=== PATIENT | male | born 2000 | race Caucasian/White ===

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

== ENCOUNTER 2019-03-20 23:58 | Emergency (ER) | payer OTHER ==
[~2019-03-20] VITALS: Ht 180.3 cm; Wt 77.0 kg
[2019-03-21 00:05] VITALS: BP 129/69
[2019-03-21] MEDS ORDERED: morphine 4 MG/ML inj SYRINge IM ONE ×2 (00:15→00:55)
[2019-03-21] MEDS ORDERED: DICL50TA8 PO (00:35)
[2019-03-21] MEDS ORDERED: morphine 4 MG/ML inj SYRINge IV ONE (00:45)
== END 2019-03-21 01:04 | disposition home or self-care (01) ==
LOC: ER 23:58
DX: S89.91XA Unspecified injury of right lower leg, initial encounter (principal); F32.9 Major depressive disorder, single episode, unspecified; Z79.899 Other long term (current) drug therapy; W22.8XXA Striking against or struck by other objects, initial encounter; Y93.89 Activity, other specified; Y92.89 Other specified places as the place of occurrence of the external cause; Y99.0 Civilian activity done for income or pay
CPT/HCPCS: 29505; 73564; 96372; 99283; J2270

== ENCOUNTER 2019-05-20 20:04 | Emergency (ER) | payer OTHER ==
[~2019-05-20] VITALS: Ht 180.3 cm; Wt 80.0 kg
[~2019-05-20 20:04] MED LIST changes: +DICL50TA8 PO
[2019-05-20] MEDS ORDERED: azithromycin 250mg tablet PO ONE ×3 (20:50→20:55)
[2019-05-20] MEDS ORDERED: CefTRIAXone 1000mg IM Kit (w/lidocaine diluent) IM ONE (20:50)
[2019-05-20] MEDS ORDERED: DIPH25CA83 PO (21:14)
[2019-05-20 21:32] VITALS: BP 120/72
== END 2019-05-20 21:32 | disposition home or self-care (01) ==
LOC: ER 20:07
DX: L25.9 Unspecified contact dermatitis, unspecified cause (principal); F32.9 Major depressive disorder, single episode, unspecified; Z79.899 Other long term (current) drug therapy; Z72.89 Other problems related to lifestyle
CPT/HCPCS: 36415; 87491; 87591; 96372; 99283; J0696

== ENCOUNTER 2019-11-01 20:24 | Emergency (ER) | payer MEDICAID ==
[~2019-11-01] VITALS: Ht 180.3 cm; Wt 70.3 kg
[~2019-11-01 20:24] MED LIST changes: +DIPH25CA83 PO
[2019-11-01] MEDS ORDERED: ketorolac tromethamine 15mg/ml inj. IM ONE (22:00)
[2019-11-01] MEDS ORDERED: HYDROcodone/acetaminophen 5mg/325mg tablet PO ONE (23:30)
[2019-11-01 23:51] VITALS: BP 116/85
== END 2019-11-01 23:52 | disposition home or self-care (01) ==
LOC: ER 20:24
DX: R68.84 Jaw pain (principal); Z79.899 Other long term (current) drug therapy; W19.XXXA Unspecified fall, initial encounter; Y93.89 Activity, other specified; Y92.89 Other specified places as the place of occurrence of the external cause; Y99.9 Unspecified external cause status
CPT/HCPCS: 70486; 96372; 99284; J1885

== ENCOUNTER 2020-01-11 05:41 | Emergency (ER) | payer MEDICAID ==
[~2020-01-11] VITALS: Ht 180.3 cm; Wt 81.8 kg
[2020-01-11 05:44] VITALS: BP 141/93
--- NOTE | 2020-01-11 06:04 | NUR ---
PT PLACED IN ROOM AND CONTINUES TO SOB. REQUESTS SOMETHING FOR HIS ANXIETY, HIS PAINI TO HIS THROAT, AND A NICOTINE PATCH. AWAITING ER PROVIDER.
[2020-01-11] MEDS ORDERED: nicotine 21mg patch - 24 hr TD ONE ×2 (07:04→07:20)
[2020-01-11] MEDS ORDERED: nicotine 7mg patch - 24hr TD ONE (07:14)
[2020-01-11] MEDS ORDERED: clonazePAM 0.5mg tablet ONE (07:15)
[2020-01-11 07:37] LABS: ALANINE AMINOTRANSFERASE 38 U/L (12-78); ALBUMIN 5.1 G/DL (3.4-5.0); ALBUMIN/GLOBULIN RATIO 1.7 (1.1-1.5); ALKALINE PHOSPHATASE 125 IU/L (20-180); ANION GAP 11 (8-16); ASPARTATE AMINO TRANSFERASE 34 U/L (10-37); BILIRUBIN,TOTAL 0.4 MG/DL (0.1-1.0); BLOOD UREA NITROGEN 17 MG/DL (7-18); BUN/CREATININE RATIO 14.8 (5.4-32.0); CALCIUM 8.6 MG/DL (8.5-10.1); CHLORIDE 102 MMOL/L (99-107); CREATININE 1.15 MG/DL (0.60-1.10); ETHANOL 0.126 GM/DL (0.0-0.010); GLUCOSE 63 MG/DL (70-104); POTASSIUM 3.9 MMOL/L (3.5-5.1); SODIUM 141 MMOL/L (135-145); TOTAL CARBON DIOXIDE 28.1 MMOL/L (24-32); TOTAL PROTEIN 8.1 G/DL (6.4-8.2); eGFR 81 ML/MIN
[2020-01-11 07:50] LABS: URINE AMPHETAMINE SCREEN NEGATIVE (Neg); URINE BARBITUATE SCREEN NEGATIVE (Neg); URINE BENZODIAZEPINES SCREEN NEGATIVE (Neg); URINE CANNABINOID SCREEN POSITIVE (Neg); URINE COCAINE SCREEN NEGATIVE (Neg); URINE METHADONE SCREEN NEGATIVE (Neg); URINE OPIATE SCREEN NEGATIVE (Neg); URINE PHENCYCLIDINE SCREEN NEGATIVE (Neg)
[2020-01-11 07:52] LABS: CLARITY,URINE CLEAR (Clear); COLOR,URINE STRAW (Yellow); UA COLLECTION TYPE VOIDED
[2020-01-11 07:53] LABS: GLUCOSE, URINE NEGATIVE (Neg); KETONES,URINE NEGATIVE (Neg); LEUKOCYTE ESTERASE ,URINE NEGATIVE (Neg); NITRITES, URINE NEGATIVE (Neg); OCCULT BLOOD,URINE TRACE-LYSED (Neg); PROTEIN,URINE NEGATIVE (Neg); UROBILINOGEN,URINE 0.2 E.U/dL (0.2-1.0)
[2020-01-11 07:54] LABS: BACTERIA,URINE FEW /HPF (Neg); RBC,URINE 0-2 /HPF (0-2); SQUAMOUS EPITHELIAL CELL,UR FEW /LPF (FEW)
[2020-01-11 08:27] LABS: BASOPHILS % (AUTO) 0.4 % (0-1); EOSINOPHILS # (AUTO) 0.1 X10'3 (0-0.9); EOSINOPHILS % (AUTO) 1.3 % (0-6); HEMATOCRIT 50.7 % (42.0-52.0); HEMOGLOBIN 17.4 g/dl (14.0-17.9); LYMPHOCYTES # (AUTO) 2.7 X10'3 (1.1-4.8); MEAN CORPUSCULAR HEMOGLOBIN 30.3 PG (27.0-31.0); MEAN CORPUSCULAR HGB CONC 34.2 g/dL (33.0-36.5); MEAN CORPUSCULAR VOLUME 88.6 FL (78-98); MEAN PLATELET VOLUME 8.2 FL (7.4-10.4); MONOCYTES # (AUTO) 1.2 X10'3 (0-0.9); MONOCYTES % (AUTO) 11.9 % (2-12); NEUTROPHILS # (AUTO) 6.3 X10'3 (1.8-7.7); NEUTROPHILS % (AUTO) 60.4 % (42-75); PLATELET COUNT 251 X10'3 (140-440); RED BLOOD COUNT 5.73 X10'6 (4.70-6.10); RED CELL DISTRIBUTION WIDTH 13.2 % (11.5-14.5); WHITE BLOOD COUNT 10.4 X10'3 (4.5-11.0)
== END 2020-01-11 09:36 | disposition home or self-care (01) ==
LOC: ER 05:42
DX: F43.22 Adjustment disorder with anxiety (principal); F32.9 Major depressive disorder, single episode, unspecified; F17.200 Nicotine dependence, unspecified, uncomplicated; Z72.89 Other problems related to lifestyle; Z79.899 Other long term (current) drug therapy
CPT/HCPCS: 36415; 80053; 80305; 80320; 81001; 84443; 85025; 99283

== ENCOUNTER 2020-01-21 23:26 | Emergency (ER) | payer MEDICAID ==
[~2020-01-21] VITALS: Ht 177.8 cm; Wt 75.0 kg
[2020-01-21 23:29] VITALS: BP 125/98
[2020-01-21] MEDS ORDERED: HYDROcodone/acetaminophen 10/325mg tab PO ONE (23:35)
== END 2020-01-22 00:34 | disposition home or self-care (01) ==
LOC: ER 23:27
DX: K08.89 Other specified disorders of teeth and supporting structures (principal); K03.81 Cracked tooth; F32.9 Major depressive disorder, single episode, unspecified; Z79.899 Other long term (current) drug therapy
CPT/HCPCS: 99282

== ENCOUNTER 2020-01-22 23:44 | Emergency (ER) | payer MEDICAID ==
[~2020-01-22] VITALS: Ht 180.3 cm; Wt 78.6 kg
[2020-01-22] MEDS ORDERED: LIDOcaine 1% W/epiNEPHrine 1:200,000 10ml vial IJ ONE (23:50)
[2020-01-22] MEDS ORDERED: TETanus/Pertussis (Acell)/Diphther VAC/PF (Tdap-Adult) 0.5ml syringe IMVAC ONE (23:50)
[2020-01-23] MEDS ORDERED: LORazepam 1 MG tablet PO ONE (00:25)
[2020-01-23] MEDS ORDERED: diphenhydrAMINE 25mg capsule PO ONE (00:25)
--- NOTE | 2020-01-23 00:32 | NUR ---
ASSUMED CARE OF PT FROM MOODY RUCKER
[2020-01-23] MEDS ORDERED: diphenhydrAMINE 50 mg/ml inj IM ONE ×2 (00:55→02:15)
[2020-01-23] MEDS ORDERED: LORazepam 2 mg/ml vial IM ONE ×2 (00:55→02:15)
--- NOTE | 2020-01-23 00:59 | NUR ---
PT IS VERY EMOTIONAL, CRYING AND THROWING UP. 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
[2020-01-23 01:53] LABS: BASOPHILS % (AUTO) 0.5 % (0-1); EOSINOPHILS # (AUTO) 0.3 X10'3 (0-0.9); EOSINOPHILS % (AUTO) 3.5 % (0-6); HEMATOCRIT 45.9 % (42.0-52.0); HEMOGLOBIN 15.7 g/dl (14.0-17.9); LYMPHOCYTES # (AUTO) 2.7 X10'3 (1.1-4.8); MEAN CORPUSCULAR HEMOGLOBIN 30.8 PG (27.0-31.0); MEAN CORPUSCULAR HGB CONC 34.3 g/dL (33.0-36.5); MEAN CORPUSCULAR VOLUME 89.9 FL (78-98); MEAN PLATELET VOLUME 7.8 FL (7.4-10.4); MONOCYTES # (AUTO) 0.6 X10'3 (0-0.9); MONOCYTES % (AUTO) 8.7 % (2-12); NEUTROPHILS # (AUTO) 3.6 X10'3 (1.8-7.7); NEUTROPHILS % (AUTO) 50.3 % (42-75); PLATELET COUNT 252 X10'3 (140-440); RED CELL DISTRIBUTION WIDTH 12.8 % (11.5-14.5); WHITE BLOOD COUNT 7.2 X10'3 (4.5-11.0)
[2020-01-23] MEDS ORDERED: nicotine 14mg patch - 24hr TD ONE (01:55)
[2020-01-23 01:57] LABS: URINE AMPHETAMINE SCREEN NEGATIVE (Neg); URINE BARBITUATE SCREEN NEGATIVE (Neg); URINE BENZODIAZEPINES SCREEN POSITIVE (Neg); URINE CANNABINOID SCREEN POSITIVE (Neg); URINE COCAINE SCREEN NEGATIVE (Neg); URINE METHADONE SCREEN NEGATIVE (Neg); URINE OPIATE SCREEN POSITIVE (Neg); URINE PHENCYCLIDINE SCREEN NEGATIVE (Neg)
[2020-01-23 01:58] LABS: ALANINE AMINOTRANSFERASE 32 U/L (12-78); ALBUMIN 4.1 G/DL (3.4-5.0); ALBUMIN/GLOBULIN RATIO 1.3 (1.1-1.5); ALKALINE PHOSPHATASE 119 IU/L (20-180); ANION GAP 8 (8-16); ASPARTATE AMINO TRANSFERASE 20 U/L (10-37); BILIRUBIN,TOTAL 0.2 MG/DL (0.1-1.0); BLOOD UREA NITROGEN 16 MG/DL (7-18); BUN/CREATININE RATIO 13.9 (5.4-32.0); CALCIUM 8.2 MG/DL (8.5-10.1); CHLORIDE 107 MMOL/L (99-107); CREATININE 1.15 MG/DL (0.60-1.10); ETHANOL 0.166 GM/DL (0.0-0.010); GLUCOSE 81 MG/DL (70-104); SODIUM 144 MMOL/L (135-145); TOTAL CARBON DIOXIDE 28.7 MMOL/L (24-32); TOTAL PROTEIN 7.3 G/DL (6.4-8.2); eGFR 81 ML/MIN
--- NOTE | 2020-01-23 02:13 | NUR ---
pt is agitated, wants vape "I want to leave now...please just let me vape", pt does have nicotine patch on, standing by door, refusing to get back into bed, constantly taking dressing off sutures to rt forearm, security is at bedside, trying to talk with pt, earlier pt was repeatedly saying "I don't want to live"
[2020-01-23] MEDS ORDERED: haloperidol lactate 5mg/ml inj IM ONE (02:15)
--- NOTE | 2020-01-23 02:33 | NUR ---
haldol was given at 0215
--- NOTE | 2020-01-23 02:40 | NUR ---
PT IS SLEEPING, PULSE OX 86% ON ROOM AIR, PLACED PT ON NASAL CANNUAL 4 LITERS 02, PULSE OX INCREASED TO 99%, PT IS RESTING QUIETLY
--- NOTE | 2020-01-23 03:48 | NUR ---
PATIENT'S PACKET WAS SENT TO [facility].
--- NOTE | 2020-01-23 04:19 | NUR ---
PATIENT SLEEPING QUIETLY. RESPIRATIONS EVEN AND UNLABORED.
[2020-01-23 05:47] VITALS: BP 118/55
--- NOTE | 2020-01-23 05:48 | NUR ---
PT MOVED TO OVERFLOW, HE IS AROUSEABLE, TALKING SLOWLY, HE WOULD LIKE ANOTHER NICOTINE PATCH, PT IS NOW ON ROOM AIR
--- NOTE | 2020-01-23 06:00 | NUR ---
PT ABLE TO TRANSFER SELF WITHOUT ASSIST FROM GURNEY TO WHEELCHAIR
--- NOTE | 2020-01-23 06:15 | NUR ---
Pt resting with eyes closed on his back, respirations normal.
--- NOTE | 2020-01-23 08:50 | NUR ---
MORGAN Rn seeing patient. Patient asking to be allowed to go home w safety plan
--- NOTE | 2020-01-23 09:49 | NUR ---
Pt calling ride prior to being discharged. Belongings returned from safe and agreed he has all valuables returned. Escorted out via security to ensure he does not drive his car that is here.
== END 2020-01-23 09:45 | disposition home or self-care (01) ==
LOC: ER 23:44
DX: S51.811A Laceration without foreign body of right forearm, initial encounter (principal); F10.129 Alcohol abuse with intoxication, unspecified; F32.9 Major depressive disorder, single episode, unspecified; F12.90 Cannabis use, unspecified, uncomplicated; Z72.89 Other problems related to lifestyle; Z79.899 Other long term (current) drug therapy; W45.8XXA Other foreign body or object entering through skin, initial encounter; Y93.89 Activity, other specified; Y92.89 Other specified places as the place of occurrence of the external cause; Y99.8 Other external cause status; Y90.0 Blood alcohol level of less than 20 mg/100 ml
CPT/HCPCS: 12005; 36415; 80053; 80305; 80320; 85025; 96372; 99285; J1200; J1630; J2060; 12045; 90715

== ENCOUNTER 2020-02-01 22:49 | Emergency (ER) | payer MEDICAID ==
[~2020-02-01] VITALS: Ht 180.3 cm; Wt 79.5 kg
[2020-02-01 22:52] VITALS: BP 135/66
[2020-02-01] MEDS ORDERED: HYDROcodone/acetaminophen 5mg/325mg tablet PO ONE ×2 (23:15→23:30)
[2020-02-01] MEDS ORDERED: cyclobenzaprine 10mg tablet PO ONE (23:15)
[2020-02-01] MEDS ORDERED: naproxen 500mg tablet PO ONE (23:15)
[2020-02-01] MEDS ORDERED: CYCL-1 PO (23:30)
[2020-02-01] MEDS ORDERED: NAPR-56 PO (23:30)
== END 2020-02-01 23:46 | disposition home or self-care (01) ==
LOC: ER 22:50
DX: S51.811D Laceration without foreign body of right forearm, subsequent encounter (principal); R07.81 Pleurodynia; M62.838 Other muscle spasm; R04.2 Hemoptysis; F32.9 Major depressive disorder, single episode, unspecified; Z72.89 Other problems related to lifestyle; Z79.899 Other long term (current) drug therapy; X58.XXXD Exposure to other specified factors, subsequent encounter
CPT/HCPCS: 71045; 99284

== ENCOUNTER 2020-02-16 20:35 | Emergency (ER) | payer MEDICAID ==
[~2020-02-16] VITALS: Ht 177.8 cm; Wt 75.0 kg
[~2020-02-16 20:35] MED LIST changes: +CYCL-1 PO; +NAPR-56 PO
[2020-02-16] MEDS ORDERED: LORazepam 2 mg/ml vial IM ONE (20:50)
--- NOTE | 2020-02-16 20:56 | NUR ---
milk to eyes/face/back/neck/ears
--- NOTE | 2020-02-16 21:37 | NUR ---
PA at BS to take care of the octavio. The pt. has settled down substantially.
--- NOTE | 2020-02-16 21:54 | NUR ---
The patient is becoming beligerant again. He told the officer "You're just trying to fill a quota."
[2020-02-16 21:56] VITALS: BP 147/98
--- NOTE | 2020-02-16 22:00 | NUR ---
2x2 and tagaderm over the site of the octavio that the doctor removed.
== END 2020-02-16 22:01 ==
LOC: ER 20:36
DX: S20.351A Superficial foreign body of right front wall of thorax, initial encounter (principal); R45.851 Suicidal ideations; F32.9 Major depressive disorder, single episode, unspecified; Z72.89 Other problems related to lifestyle; Z79.899 Other long term (current) drug therapy; X58.XXXA Exposure to other specified factors, initial encounter; Y93.89 Activity, other specified; Y92.89 Other specified places as the place of occurrence of the external cause; Y99.8 Other external cause status
CPT/HCPCS: 10120; 96372; 99283; J2060

== ENCOUNTER 2020-02-20 10:33 | Emergency (ER) | payer MEDICAID | END 2020-02-20 12:44 | disposition left against medical advice (07) | LOC: ER 10:34 | DX: K08.89 Other specified disorders of teeth and supporting structures (principal); Z53.21 Procedure and treatment not carried out due to patient leaving prior to being seen by health care provider ==

== ENCOUNTER 2020-02-28 23:21 | Emergency (ER) | payer MEDICAID ==
[~2020-02-28] VITALS: Ht 180.3 cm; Wt 80.0 kg
[2020-02-28 23:22] VITALS: BP 103/61
[2020-02-29] MEDS ORDERED: ketorolac trometh. 30mg/ml inj. IM ONE (00:10)
[2020-02-29] MEDS ORDERED: LIDOcaine 5% patch TP ONE (00:10)
[2020-02-29] MEDS ORDERED: acetaminophen 325mg tablet PO ONE (00:10)
[2020-02-29] MEDS ORDERED: HYDROcodone/acetaminophen 5mg/325mg tablet PO ONE (00:10)
[2020-02-29] MEDS ORDERED: ACET-2615 PO (00:12)
[2020-02-29] MEDS ORDERED: MELO-100 PO (00:12)
[2020-02-29] MEDS ORDERED: LIDO700A32 TOP (00:12)
== END 2020-02-29 00:48 | disposition home or self-care (01) ==
LOC: ER 23:21
DX: R07.81 Pleurodynia (principal); F32.9 Major depressive disorder, single episode, unspecified; Z79.899 Other long term (current) drug therapy
CPT/HCPCS: 96372; 99284; J1885

== ENCOUNTER 2020-03-29 23:42 | Emergency (ER) | payer MEDICAID ==
[~2020-03-29] VITALS: Ht 180.3 cm; Wt 81.8 kg
[~2020-03-29 23:42] MED LIST changes: +LIDO700A32 TOP; +MELO-100 PO; -NAPR-56 PO
[2020-03-29 23:50] VITALS: BP 145/80
--- NOTE | 2020-03-30 00:02 | NUR ---
pt has abrasions on right forearm that are superficial in nature. wound cleaning and dressing will be applied before discharged with [employer]. pt already assessed by MD Marcum
== END 2020-03-30 00:10 ==
LOC: ER 23:43
DX: S50.811A Abrasion of right forearm, initial encounter (principal); F10.920 Alcohol use, unspecified with intoxication, uncomplicated; F32.9 Major depressive disorder, single episode, unspecified; Z02.89 Encounter for other administrative examinations; X58.XXXA Exposure to other specified factors, initial encounter; Y93.89 Activity, other specified; Y92.89 Other specified places as the place of occurrence of the external cause; Y99.8 Other external cause status; Y90.9 Presence of alcohol in blood, level not specified
CPT/HCPCS: 99283

== ENCOUNTER 2020-04-25 13:28 | Emergency (ER) | payer MEDICAID ==
[~2020-04-25] VITALS: Ht 172.7 cm; Wt 65.9 kg
[2020-04-25 13:51] VITALS: BP 148/85
[2020-04-25] MEDS: triamcinolone acetonide 40mg/ml inj IM ONE (13:59)
== END 2020-04-25 14:03 ==
LOC: ER 13:29
DX: I10 Essential (primary) hypertension (principal); L23.7 Allergic contact dermatitis due to plants, except food; Z72.89 Other problems related to lifestyle; Z79.899 Other long term (current) drug therapy
CPT/HCPCS: 96372; 99283; J3301

== ENCOUNTER 2020-09-09 23:23 | Emergency (ER) | payer MEDICAID ==
[~2020-09-09] VITALS: Ht 180.3 cm; Wt 80.0 kg
--- NOTE | 2020-09-10 00:11 | NUR ---
Dr. Ramsey notified of patient's symptoms.
[2020-09-10] MEDS ORDERED: normal saline 1000ML IV soln IVB STA (00:27)
[2020-09-10] MEDS ORDERED: diphenhydrAMINE 50 mg/ml inj IV ONE (00:30)
[2020-09-10] MEDS ORDERED: dexamethasone 4mg/ml inj IV ONE (00:30)
[2020-09-10] MEDS ORDERED: famotidine/PF 10 mg/ml inj IV ONE (00:30)
[2020-09-10] MEDS ORDERED: dexamethasone sod phosphate 10mg/ml inj IV ONE (00:35)
[2020-09-10 00:56] LABS: BASOPHILS % (AUTO) 0.7 % (0-1); EOSINOPHILS # (AUTO) 0.2 X10'3 (0-0.9); HEMATOCRIT 41.2 % (42.0-52.0); HEMOGLOBIN 14.2 g/dl (14.0-17.9); LYMPHOCYTES % (AUTO) 34.7 % (21-51); MEAN CORPUSCULAR HEMOGLOBIN 30.2 PG (27.0-31.0); MEAN CORPUSCULAR HGB CONC 34.4 g/dL (33.0-36.5); MEAN CORPUSCULAR VOLUME 87.8 FL (78-98); MEAN PLATELET VOLUME 8.2 FL (7.4-10.4); NEUTROPHILS # (AUTO) 2.6 X10'3 (1.8-7.7); NEUTROPHILS % (AUTO) 44.6 % (42-75); PLATELET COUNT 230 X10'3 (140-440); RED BLOOD COUNT 4.69 X10'6 (4.70-6.10); RED CELL DISTRIBUTION WIDTH 13.6 % (11.5-14.5); WHITE BLOOD COUNT 5.7 X10'3 (4.5-11.0)
[2020-09-10 01:22] LABS: ALBUMIN 3.4 G/DL (3.4-5.0); ANION GAP 9 (8-16); BLOOD UREA NITROGEN 13 MG/DL (7-18); BUN/CREATININE RATIO 13.1 (5.4-32.0); CALCIUM 8.3 MG/DL (8.5-10.1); CHLORIDE 108 MMOL/L (99-107); CREATININE 0.99 MG/DL (0.60-1.10); GLUCOSE 99 MG/DL (70-104); POTASSIUM 4.1 MMOL/L (3.5-5.1); SODIUM 143 MMOL/L (135-145); TOTAL CARBON DIOXIDE 25.6 MMOL/L (24-32); eGFR > 90 ML/MIN
[2020-09-10] MEDS ORDERED: ibuprofen tablet 400 MG TABLET PO ONE (01:30)
[2020-09-10] MEDS ORDERED: FAMO-128 PO (01:37)
[2020-09-10] MEDS ORDERED: DIPH-423 PO (01:37)
[2020-09-10] MEDS ORDERED: PRED20TA PO (01:37)
--- NOTE | 2020-09-10 01:39 | NUR ---
Patient declines MD Braulio Whitlock notified.
[2020-09-10 02:03] VITALS: BP 113/66
== END 2020-09-10 02:09 | disposition home or self-care (01) ==
LOC: ER 23:24
DX: L50.9 Urticaria, unspecified (principal); F12.10 Cannabis abuse, uncomplicated; F32.9 Major depressive disorder, single episode, unspecified; Z79.899 Other long term (current) drug therapy
CPT/HCPCS: 80048; 85025; 96361; 96374; 96375; 99284; J1100; J1200; J3490; J7030

== ENCOUNTER 2020-10-27 19:58 | Emergency (ER) | payer MEDICAID ==
[~2020-10-27] VITALS: Ht 180.3 cm; Wt 85.5 kg
[~2020-10-27 19:58] MED LIST changes: +FAMO-128 PO
[2020-10-27] MEDS ORDERED: CEPH250T PO (20:18)
[2020-10-27] MEDS ORDERED: METH4TAB81 PO (20:38)
[2020-10-27] MEDS ORDERED: HYDR-3965 PO (20:38)
[2020-10-27 20:47] VITALS: BP 120/76
== END 2020-10-27 20:48 | disposition home or self-care (01) ==
LOC: ER 20:00
DX: S81.832A Puncture wound without foreign body, left lower leg, initial encounter (principal); F32.9 Major depressive disorder, single episode, unspecified; F12.90 Cannabis use, unspecified, uncomplicated; Z72.89 Other problems related to lifestyle; Z79.2 Long term (current) use of antibiotics; Z79.899 Other long term (current) drug therapy; X58.XXXA Exposure to other specified factors, initial encounter; Y93.89 Activity, other specified; Y92.89 Other specified places as the place of occurrence of the external cause; Y99.8 Other external cause status
CPT/HCPCS: 99283

== ENCOUNTER 2020-10-31 09:22 | Emergency (ER) | payer MEDICAID ==
[~2020-10-31] VITALS: Ht 180.3 cm; Wt 84.1 kg
[~2020-10-31 09:22] MED LIST changes: +CEPH250T PO; +HYDR-3965 PO
[2020-10-31 09:28] VITALS: BP 117/75
[2020-10-31] MEDS ORDERED: ketorolac trometh. 30mg/ml inj. IM ONE (11:20)
== END 2020-10-31 11:44 | disposition home or self-care (01) ==
LOC: ER 09:23
DX: M79.662 Pain in left lower leg (principal); F12.90 Cannabis use, unspecified, uncomplicated; Z72.89 Other problems related to lifestyle; Z79.2 Long term (current) use of antibiotics; Z79.899 Other long term (current) drug therapy
CPT/HCPCS: 96372; 99283; J1885

== ENCOUNTER 2020-11-13 00:37 | Emergency (ER) | payer MEDICAID ==
[~2020-11-13] VITALS: Ht 180.3 cm; Wt 79.1 kg
[~2020-11-13 00:37] MED LIST changes: -CEPH250T PO; -HYDR-3965 PO
[2020-11-13 00:47] VITALS: BP 106/63
[2020-11-13] MEDS ORDERED: HYDROcodone/acetaminophen 10/325mg tab PO ONE (03:30)
[2020-11-13] MEDS ORDERED: NEOM10DR45 LEFT EAR (03:32)
[2020-11-15] MEDS ORDERED: LITH300C PO (09:54)
[2020-11-15] MEDS ORDERED: LURA40TA3 PO (13:16)
== END 2020-11-13 03:52 | disposition home or self-care (01) ==
LOC: ER 00:37
DX: H66.92 Otitis media, unspecified, left ear (principal); Z79.899 Other long term (current) drug therapy
CPT/HCPCS: 99283

== ENCOUNTER 2020-11-14 04:25 | Emergency (ER) | payer MEDICAID ==
[~2020-11-14] VITALS: Ht 180.3 cm; Wt 84.0 kg
[~2020-11-14 04:25] MED LIST changes: -ALPRAZolam 0.5mg tablet PO ONE; -IBUP-1986 PO; -LITH300C PO; -LORazepam 1 MG tablet PO ONE; -LURA40TA3 PO; -acetaminophen 325mg tablet PO ONE; -clonazePAM 0.5mg tablet PO SCH; -traZODone 50mg tablet PO ONE; -traZODone 50mg tablet PO SCH
[2020-11-14 04:28] VITALS: BP 146/78
[2020-11-15] MEDS ORDERED: LITH300C PO (09:54)
[2020-11-15] MEDS ORDERED: LURA40TA3 PO (13:16)
[2020-11-15] MEDS ORDERED: lurasidone 20mg tablet PO SCH (21:00)
[2020-11-16] MEDS ORDERED: lithium carbonate 150mg capsule PO SCH (08:00)
== END 2020-11-14 04:56 ==
LOC: ER 04:25
DX: F15.129 Other stimulant abuse with intoxication, unspecified (principal); F12.90 Cannabis use, unspecified, uncomplicated; Z72.89 Other problems related to lifestyle; Z79.899 Other long term (current) drug therapy; Z79.2 Long term (current) use of antibiotics
CPT/HCPCS: 99283

== ENCOUNTER → 2020-11-14 | Emergency (ER) | payer MEDICAID ==
[~2020-11-14] VITALS: Ht 177.8 cm; Wt 77.8 kg
[~2020-11-14] MED LIST changes: +ALPRAZolam 0.5mg tablet PO ONE; +IBUP-1986 PO; +LITH300C PO; +LORazepam 1 MG tablet PO ONE; +LURA40TA3 PO; +NEOM10DR45 LEFT EAR; +acetaminophen 325mg tablet PO ONE; +clonazePAM 0.5mg tablet PO SCH; +traZODone 50mg tablet PO ONE; +traZODone 50mg tablet PO SCH
[2020-11-15 01:01] LABS: BASOPHILS % (AUTO) 0.2 % (0-1); EOSINOPHILS % (AUTO) 0.4 % (0-6); HEMATOCRIT 47.4 % (42.0-52.0); HEMOGLOBIN 16.2 g/dl (14.0-17.9); LYMPHOCYTES # (AUTO) 1.7 X10'3 (1.1-4.8); LYMPHOCYTES % (AUTO) 17.3 % (21-51); MEAN CORPUSCULAR HEMOGLOBIN 29.8 PG (27.0-31.0); MEAN CORPUSCULAR HGB CONC 34.1 g/dL (33.0-36.5); MEAN CORPUSCULAR VOLUME 87.3 FL (78-98); MEAN PLATELET VOLUME 7.4 FL (7.4-10.4); MONOCYTES # (AUTO) 0.8 X10'3 (0-0.9); MONOCYTES % (AUTO) 8.4 % (2-12); NEUTROPHILS # (AUTO) 7.4 X10'3 (1.8-7.7); NEUTROPHILS % (AUTO) 73.7 % (42-75); PLATELET COUNT 299 X10'3 (140-440); RED BLOOD COUNT 5.43 X10'6 (4.70-6.10); RED CELL DISTRIBUTION WIDTH 14.2 % (11.5-14.5)
[2020-11-15 01:15] LABS: ALANINE AMINOTRANSFERASE 37 U/L (12-78); ALBUMIN 4.7 G/DL (3.4-5.0); ALBUMIN/GLOBULIN RATIO 1.3 (1.1-1.5); ALKALINE PHOSPHATASE 117 IU/L (46-116); ANION GAP 10 (8-16); ASPARTATE AMINO TRANSFERASE 36 U/L (10-37); BILIRUBIN,TOTAL 0.8 MG/DL (0.1-1.0); BLOOD UREA NITROGEN 12 MG/DL (7-18); CALCIUM 9.3 MG/DL (8.5-10.1); CHLORIDE 105 MMOL/L (99-107); CREATININE 1.09 MG/DL (0.60-1.10); GLUCOSE 88 MG/DL (70-104); POTASSIUM 4.3 MMOL/L (3.5-5.1); SODIUM 142 MMOL/L (135-145); TOTAL CARBON DIOXIDE 26.8 MMOL/L (24-32); TOTAL PROTEIN 8.2 G/DL (6.4-8.2); eGFR 85 ML/MIN
[2020-11-15 01:21] LABS: URINE AMPHETAMINE SCREEN POSITIVE (Neg); URINE BARBITUATE SCREEN NEGATIVE (Neg); URINE BENZODIAZEPINES SCREEN NEGATIVE (Neg); URINE CANNABINOID SCREEN POSITIVE (Neg); URINE COCAINE SCREEN NEGATIVE (Neg); URINE METHADONE SCREEN NEGATIVE (Neg); URINE OPIATE SCREEN NEGATIVE (Neg); URINE PHENCYCLIDINE SCREEN NEGATIVE (Neg)
[2020-11-15 01:25] LABS: ETHANOL < 0.010 GM/DL (0.0-0.010)
--- NOTE | 2020-11-15 02:00 | NUR ---
SI+ plan to shoot himself with a gun, pt has old scars of cutting on his chest. Explain he just broke up with girlfriend. Pt took cocaine 2 days ago and driking alcohol.Pt denies hallucination pt wants to go in rehab.
--- NOTE | 2020-11-15 02:00 | NUR ---
PT IN BED, RESTING PEACEFULLY BEING COOPERATIVE
--- NOTE | 2020-11-15 03:45 | NUR ---
PT FOUND STANDING NEXT TO BED. PT ASSISTED BACK TO BED. PT COOPERATIVE AND KIND.
--- NOTE | 2020-11-15 04:30 | NUR ---
PT SLEEPING ON LEFT SIDE, NO SIGNS OF DISTRESS AT THIS TIME. PT EVEN UNLABORED RESPIRATIONS
--- NOTE | 2020-11-15 06:48 | NUR ---
PT CONTINUES TO SLEEP ON LEFT SIDE, EVEN RESPIRATIONS
--- NOTE | 2020-11-15 08:44 | NUR ---
Pt ambulated over with screen writer and placed in bed 22. Pt was calm and cooperative. Pt up at bedside eating breakfast.
[2020-11-15 09:18] LABS: CLARITY,URINE CLEAR (Clear); COLOR,URINE YELLOW (Yellow); GLUCOSE, URINE NEGATIVE (Neg); KETONES,URINE 40 mg/dl (Neg); LEUKOCYTE ESTERASE ,URINE NEGATIVE (Neg); NITRITES, URINE NEGATIVE (Neg); OCCULT BLOOD,URINE NEGATIVE (Neg); PH,URINE 5.5 (4.8-8.0); PROTEIN,URINE NEGATIVE (Neg); UROBILINOGEN,URINE 0.2 E.U/dL (0.2-1.0)
[2020-11-15 09:23] LABS: UA COLLECTION TYPE CLN CATCH MIDSTREAM
--- NOTE | 2020-11-15 10:38 | NUR ---
Paperwork faxed to [facility]
--- NOTE | 2020-11-15 14:33 | NUR ---
RELIEVING RN FOR LUNCH, PT HAS BEEN EVALUATED BY [facility], HE IS NOW ON PHONE TALKING WITH REHAB FACILITY
[2020-11-15] MEDS: LORazepam 1 MG tablet PO PRN ×2 (14:54→21:22)
--- NOTE | 2020-11-15 14:55 | NUR ---
Pt stated he is "feeling anxious." Pt on phone with this children's mom, overheard conversation and she doesn't want him to come home.
--- NOTE | 2020-11-15 20:00 | NUR ---
One to one with the patient who reports being depressed and suicidal. His affect and presentation was not congruent to that report. He is focused on receiving xanax because he has been taking it every day and it is prescribed by his MD and he doesn't feel ativan was going to be suffient. Per his report the xanax was the only medication that he was taking. Interestingly his tox screen was negative for benzodiazapines. He also was adament that he does not use amphetamines but his tox screen was positive for amphetamines. He stated he is craving ETOH. He denies psychotic symptoms and none were evident during the assessment. He appears clean and well groomed. He presents as manipulative but cooperative.
[2020-11-15] MEDS: lurasidone 20mg tablet PO SCH (20:52)
[2020-11-15] MEDS: lithium carbonate 150mg capsule PO SCH (20:52)
--- NOTE | 2020-11-15 21:00 | NUR ---
The patient requested Trazodone and Eulalio COKER was made aware and orders received.
--- NOTE | 2020-11-15 22:05 | NUR ---
The patient complained of knee pain and Dr. Griffith made aware and orders received.
--- NOTE | 2020-11-15 22:15 | NUR ---
THe patient is quietly sitting on the side of his bed
--- NOTE | 2020-11-15 23:45 | NUR ---
The patient appears to be sleeping
--- NOTE | 2020-11-16 01:44 | NUR ---
The patient appears to be sleeping
--- NOTE | 2020-11-16 03:37 | NUR ---
THe patient appears to be sleeping
--- NOTE | 2020-11-16 04:46 | NUR ---
The patient appears to be sleeping
--- NOTE | 2020-11-16 06:26 | NUR ---
Patient appears to be sleeping, no signs/symptoms of distress
--- NOTE | 2020-11-16 10:43 | NUR ---
patient continues to rest quietly, no signs/symptoms of distress.
--- NOTE | 2020-11-16 12:33 | NUR ---
Patient appears to be sleeping, no signs/symptoms of distress.
--- NOTE | 2020-11-16 13:49 | NUR ---
talking to girlfriend Samantha on phone.
[2020-11-16 17:52] VITALS: BP 137/71
--- NOTE | 2020-11-16 18:49 | NUR ---
The patient is on his bed playing cards with his girlfriend. His affect is bright which is incongruent to his report of being suicdial. He presents as manipulative. He is craving ETOH. He was made aware that he will discharged from the ER and admitted to [facility]. He reports his anxiety is extremely high but he appears relaxed and calmed. His girlfriend brought in food items for the patient and it was hidden in the sheets.
[2020-11-16] MEDS: lurasidone 20mg tablet PO SCH (20:42)
[2020-11-16] MEDS: lithium carbonate 150mg capsule PO SCH (20:43)
== END ==
LOC: ER 17:41
DX: R45.851 Suicidal ideations (principal); Z20.822 Contact with and (suspected) exposure to COVID-19; F12.90 Cannabis use, unspecified, uncomplicated; Z72.89 Other problems related to lifestyle; Z79.899 Other long term (current) drug therapy
CPT/HCPCS: 36415; 80053; 80178; 80305; 80320; 81003; 84443; 85025; 87635; 99285; C9803

== ENCOUNTER 2020-11-16 18:27 | Inpatient (IN) | payer MEDICAID ==
[~2020-11-16] VITALS: Ht 177.8 cm; Wt 78.0 kg
[~2020-11-16 18:27] MED LIST changes: -CLON-528 PO; -CYCL-1 PO; -DICL50TA8 PO; -DIPH-423 PO; -DIPH25CA83 PO; -ESCI10TA PO; -FAMO-128 PO; -LIDO700A32 TOP; +LITH300C PO; +LURA40TA3 PO; -MELO-100 PO; -METH40CP; -METH4TAB81 PO; -MONT10TA21 PO; -NEOM10DR45 LEFT EAR; -PRED10TA PO; -QUET50TA PO
[2020-11-16] MEDS ORDERED: traZODone 50mg tablet PO PRN ×2 (21:10→22:50)
[2020-11-16] MEDS ORDERED: NICOTINE POLACRILEX 2 MG LOZENGE BC PRN (21:10)
[2020-11-16] MEDS ORDERED: acetaminophen 325mg tablet PO PRN ×2 (21:10)
[2020-11-16] MEDS ORDERED: loperamide 2mg capsule PO PRN (21:10)
[2020-11-16] MEDS ORDERED: LORazepam 1 MG tablet PO PRN (21:10)
[2020-11-16] MEDS ORDERED: magnesium hydroxide 30ml (MOM) UD suspension PO PRN (21:10)
[2020-11-16] MEDS ORDERED: mag hydrox/Alum hydrox/simeth 30ml oral suspension PO PRN (21:10)
[2020-11-16] MEDS ORDERED: IBUP-1986 PO (21:15)
--- NOTE | 2020-11-16 21:34 | NUR ---
Patient arrived in the [facility].
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
[2020-11-17 08:00] VITALS: BP 126/64
[2020-11-17] MEDS ORDERED: lithium carbonate 150mg capsule PO SCH ×3 (08:00→21:00)
[2020-11-17] MEDS ORDERED: nicotine 21mg patch - 24 hr TD SCH (08:00)
[2020-11-17] MEDS: ibuprofen tablet 400 MG TABLET PO SCH ×3 (08:21→20:54)
--- NOTE | 2020-11-17 08:57 | NUR ---
Pt takes [place] at HS, pt took it last night at HS. [place] was scheduled to give today at 0800. Changed order to Q HS.
[2020-11-17] MEDS ORDERED: cloNIDine 0.1 mg tablet PO ONE ×2 (13:55→20:35)
[2020-11-17] MEDS ORDERED: buprenorphine/naloxone 8MG-2MG SUBlingual film SL ONE (13:55)
[2020-11-17] MEDS: ondansetron 4mg rapidly disintigrating tab PO PRN (13:57)
[2020-11-17 14:10] VITALS: BP 120/87
[2020-11-17] MEDS ORDERED: ondansetron 4mg rapidly disintigrating tab PO ONE (15:20)
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
[2020-11-17] MEDS: DOXYCYCLINE 100MG CAPSULE PO SCH (17:59)
[2020-11-17] MEDS: clonazePAM 1mg tablet PO SCH (19:23)
--- NOTE | 2020-11-17 19:27 | NUR ---
Patient came to nurses station. He complains of anxiety and wishes to depart. Patient advised that he is on a 5150 hold. Patient expresses the belief that he has the right to leave since he brought himself in. Patient desires to speak with the MD. A call is in to the provider PO Klonopin 1 mg has been given.
[2020-11-17] MEDS ORDERED: haloperidol lactate 5mg/ml inj IM ONE (19:30)
[2020-11-17] MEDS ORDERED: diphenhydrAMINE 50 mg/ml inj IM ONE (19:30)
[2020-11-17] MEDS ORDERED: LORazepam 2 mg/ml vial IM ONE (19:30)
--- NOTE | 2020-11-17 19:50 | NUR ---
Per medical provider a B=52 was ordered and given to this patient at bedside. Security was present at bedside. Patient exhibited agitation and anxiety but did comply with the IM injections.
[2020-11-17 20:00] VITALS: BP 132/79
[2020-11-17] MEDS: buprenorphine/naloxone 8MG-2MG SUBlingual film SL SCH (20:58)
[2020-11-17] MEDS ORDERED: lurasidone 20mg tablet PO SCH (21:00)
[2020-11-17] MEDS: traZODone 50mg tablet PO PRN (23:07)
[2020-11-18] MEDS: ondansetron 4mg rapidly disintigrating tab PO PRN ×2 (03:07→10:39)
[2020-11-18] MEDS: traZODone 50mg tablet PO PRN (03:08)
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
[2020-11-18] MEDS: cloNIDine 0.1 mg tablet PO SCH ×3 (07:18→13:55)
[2020-11-18] MEDS ORDERED: ondansetron 4mg rapidly disintigrating tab PO ONE (07:20)
[2020-11-18] MEDS: clonazePAM 1mg tablet PO SCH (07:29)
[2020-11-18 07:36] VITALS: BP 103/50
[2020-11-18] MEDS ORDERED: buprenorphine/naloxone 8MG-2MG SUBlingual film SL SCH (08:00)
[2020-11-18] MEDS ORDERED: lithium carbonate 150mg capsule PO SCH (08:00)
[2020-11-18 08:20] VITALS: BP 117/72
[2020-11-18] MEDS: DOXYCYCLINE 100MG CAPSULE PO SCH (08:25)
[2020-11-18] MEDS: ibuprofen tablet 400 MG TABLET PO SCH ×2 (08:25→13:00)
[2020-11-18] MEDS: buprenorphine/naloxone 8MG-2MG SUBlingual film SL SCH (08:25)
[2020-11-18 08:47] LABS: CHOL/HDL RATIO 2.7 (0.00-4.99); CHOLESTEROL 153 MG/DL (0-200); HDL CHOLESTEROL 57 MG/DL (35-60); LDL CHOLESTEROL 78 MG/DL (50-100); TRIGLYCERIDES 87 MG/DL (20-135)
[2020-11-18 13:54] VITALS: BP 119/64
[2020-11-18] MEDS ORDERED: ibuprofen tablet 400 MG TABLET PO PRN (13:55)
[2020-11-18] MEDS ORDERED: DOXY-224 PO (15:55)
[2020-11-18] MEDS ORDERED: BUPR1FIL3 SL (15:55)
[2020-11-18] MEDS ORDERED: CLON1TAB12 PO (15:55)
[2020-11-18] MEDS ORDERED: LURA60TA PO (15:55)
[2020-11-18] MEDS ORDERED: CLON0.1T2 PO (15:55)
[2020-11-18] MEDS ORDERED: TRAZ-256 PO (15:55)
[2020-11-18] MEDS ORDERED: LITH300T3 PO (15:55)
--- NOTE | 2020-11-18 16:30 | NUR ---
Pt discharged home, ambulated off the unit accompanied by RN, all belongings returned, Rxs were electronically sent to pt's pharmacy. Pt expressed understanding of Rxs and discharge instructions.
== END 2020-11-18 16:30 | disposition home or self-care (01) | DRG 753 ==
LOC: ADULT MH 21:01
PROVIDERS: ADMIT Psychiatry & Neurology Psychiatry; ATTEND Psychiatry & Neurology Psychiatry
DX: F39 Unspecified mood [affective] disorder (principal); F11.20 Opioid dependence, uncomplicated; R45.851 Suicidal ideations; F12.10 Cannabis abuse, uncomplicated; A74.9 Chlamydial infection, unspecified; F32.9 Major depressive disorder, single episode, unspecified; Z20.822 Contact with and (suspected) exposure to COVID-19; F13.20 Sedative, hypnotic or anxiolytic dependence, uncomplicated; F15.10 Other stimulant abuse, uncomplicated; F14.10 Cocaine abuse, uncomplicated; Z59.0 Homelessness; Z63.4 Disappearance and death of family member; Z81.8 Family history of other mental and behavioral disorders; Z79.899 Other long term (current) drug therapy
CPT/HCPCS: 36415; 80061; 83036; 87081; 87491; J1200; J1630; J2060